=== PATIENT | female | born 2000 | race Asian ===

== ENCOUNTER 2022-07-03 21:30 | Outpatient (CLI) | payer OTHER, SELFPAY | END 2022-07-03 21:31 | disposition home or self-care (01) | LOC: AMB 07-12 15:51 | PROVIDERS: Visit Provider Family Medicine | DX: R45.851 Suicidal ideations (principal) ==

== ENCOUNTER 2022-07-03 21:57 | Emergency (ER) | payer OTHER, SELFPAY ==
[2022-07-03 22:25] VITALS: BP 118/90; PULSE 87; RESP 18; TEMP 36.4; O2SAT 99; BMI 183690.0
--- NOTE | 2022-07-03 22:47 | ED.GENADULT ---
HPI - General Adult General Time Seen by Provider: 22:47 Date Seen: 07/03/22 Chief complaint: Psychiatric Problem/Disorder Stated complaint: Mental Health - Suicidal Time Seen by Provider: 07/03/22 22:40 Source: patient and RN notes reviewed Mode of arrival: ambulatory Limitations: no limitations History of Present Illness HPI narrative: 22-year-old female brought in by ambulance for mental health evaluation. Patient admits history of depression, says she stopped her medication about a week ago. She denies suicide ideation or plan to me and asked to go home. She denies prior inpatient treatment, sees a counselor at school. 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 Additional information from school counselor as the patient has been making increasing suicide statements with plan to strangle herself and as said she would do this before next counseling appointment. Related Data Home Medications Medication Instructions Recorded Confirmed No Known Home Medications 07/03/22 07/03/22 Allergies Allergy/AdvReac Type Severity Reaction Status Date / Time No Known Drug Allergies Allergy Verified 07/03/22 22:40 Exam Narrative: Exam Narrative: General: well nourished , NAD Head: Atraumatic and normocephalic ENT: External ears and external nose are normal Eyes: Conjunctiva clear, pupils are equal reactive, external ocular motions are intact Neck: Full spontaneous range of motion of the neck Lungs: No respiratory distress Musculoskeletal: No tenderness or deformity Neurologic: No gross focal neurologic deficits Skin: No rashes Psych: Mood and affect are appropriate, smiling laughing, working on school work. Denies suicide ideation. Const: Vital Signs, click to edit/add: Vital Signs - 24 hr 07/03/22 22:25 Temperature 97.6 F Pulse Rate [Pulse Oximeter] 87 Respiratory Rate 18 Blood Pressure [Le ft Upper Arm] 118/90 H Pulse Oximetry 99 Oxygen Delivery Me thod Room Air Course Course Hospital Course: Patient seen and examined, prior records reviewed, additional information from school counselor. Patient here for mental health evaluation, she denies suicide ideation or plan to me, is interactive and smiling. However, it sounds like she has been making increasing suicidal statements with a plan to others, concerned that her current presentation may be minimizing symptoms, or pre suicide attempt elation. Mental health assessment requested Reevaluation(s) Reevaluation #1: Discussed with mental health apprenticeship training representative who will see the patient Time: 06:35 Reevaluation #2: Discussed with mental health apprenticeship training representative, patient is able to contract for safety today and is willing to see a new therapist. She is stable for discharge with close outpatient follow-up Time: 07:55 Vital Signs Vital signs: Initial Vital Signs Temperature 97.6 F 07/03/22 22:25 Temperature Source Temporal Artery Scan 07/03/22 22:25 Pulse Rate 87 07/03/22 22:25 Respiratory Rate 18 07/03/22 22:25 Blood Pressure 118/90 H 07/03/22 22:25 Blood Pressure Mean 99 07/03/22 22:25 Pulse Oximetry 99 07/03/22 22:25 Oxygen Delivery Method 07/03/22 22:25 Vital Signs Temperature 97.6 F 07/03/22 22:25 Pulse Rate 87 07/03/22 22:25 Respiratory Rate 18 07/03/22 22:25 Blood Pressure 118/90 H 07/03/22 22:25 Pulse Oximetry 99 07/03/22 22:25 Oxygen Delivery Method 07/03/22 22:25 Temperature 97.6 F 07/03/22 22:25 Pulse Rate 87 07/03/22 22:25 Respiratory Rate 18 07/03/22 22:25 Blood Pressure 118/90 H 07/03/22 22:25 Pulse Oximetry 99 07/03/22 22:25 Oxygen Delivery Method 07/03/22 22:25 Medical Decision Making Lab Data Labs: Lab Results 07/03/22 07/03/22 Range/Units 06:45 06:45 HCG, Qual Negative (Negative) Urine Opiates Screen Negative (Negative) Ur Oxycodone Screen Negative (Negative) Urine Methadone Screen Negative (Negative) Ur Propoxyphene Screen Negative (Negative) Ur Barbiturates Screen Negative (Negative) U Tricyclic Antidepress Negative (Negative) Ur Phencyclidine Scrn Negative (Negative) Ur Amphetamines Screen Negative (Negative) U Methamphetamines Scrn Negative (Negative) U Benzodiazepines Scrn Negative (Negative) Urine Cocaine Screen Negative (Negative) U Marijuana (THC) Screen Negative (Negative) Ur Drug Screen Comment See Note Discharge Plan Discharge Prescriptions: No Action No Known Home Medications
--- NOTE | 2022-07-03 23:30 | ED.NURSE ---
Clinical psychologist [facility] and medical/mental collateral Becky Beltre [phone]
--- NOTE | 2022-07-04 00:45 | ED.NURSE ---
According to lead clinical psychologist of [facility], Becky Beltre [phone]; patient has been seen several times and has been on their radar for concern of chronic depression and suicidal ideation. According to patient's therapy file patient has diagnosis of trauma and depression. 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 Patient was started on escitalopram but stopped taking it after a few days stating its just not worth it, nothing will change. I will kill myself. It will be longer than one week but shorter than one year. She had allegedly told her roommate she was planning to hang herself. After her therapist reached out to her to quick on patient, pt called back to say dexe. She has refused to commit to safety plans. Her [facility] mental health team is very concerned that patient is a threat to self.
--- NOTE | 2022-07-04 06:46 | ED.NURSE ---
pt speaking with
[2022-07-04 07:01] LABS: HCG Qualitative* Negative (Negative)
[2022-07-04 07:04] LABS: Amphetamine Screen Urine Negative (Negative); Barbiturate Screen Urine Negative (Negative); Benzodiazepines Screen Urine Negative (Negative); Cannabinoid Screen Urine Negative (Negative); Cocaine Screen Urine Negative (Negative); Methadone Screen Urine Negative (Negative); Methamphetamines Screen Urine Negative (Negative); Opiate Screen Urine Negative (Negative); Oxycodone Screen Urine Negative (Negative); Phencyclidine Screen Urine Negative (Negative); Tricyclic Antidepressant Urine Negative (Negative)
[2022-07-04 08:56] VITALS: BP 118/79; PULSE 89; RESP 16; TEMP 36.7; O2SAT 100
--- NOTE | 2022-07-04 09:06 | ED.NURSE ---
safety plan reviewed with pt. belongings returned. [facility] called to come pick pt up, pt waiting for them in waiting room.
== END 2022-07-04 09:10 | disposition home or self-care (01) ==
PROVIDERS: Emergency Provider Family Medicine
DX: F32.A Depression, unspecified (principal); R45.851 Suicidal ideations
CPT/HCPCS: 80306; 84703; 99283; 99284